=== PATIENT | male | born 1990 ===

== ENCOUNTER 2021-03-11 16:46 | Inpatient (IN) ==
[2021-03-11] MEDS ORDERED: VANCOMYCIN INJ 1,000 MG in SODIUM CHLORIDE 0.9% 250 ML IV STA (17:22)
[2021-03-11] MEDS ORDERED: ACETAMINOPHEN 325 MG TABLET PO PRN (20:53)
[2021-03-11] MEDS ORDERED: ZALEPLON 5 MG CAPSULE PO PRN (20:53)
[2021-03-11] MEDS ORDERED: ONDANSETRON 4 MG/2 ML VIAL IV PRN (20:53)
[2021-03-12] MEDS ORDERED: VANCOMYCIN INJ 2,000 MG in SODIUM CHLORIDE 0.9% 500 ML IV ONE (05:30)
[2021-03-12 06:05] LABS: Basophils % 0.5 % (0.0-0.8); Eosinophils # 0.2 10*3/uL (0.0-0.87); Eosinophils % 2.9 % (0.00-10.9); Hemoglobin 13.2 GM/DL (14.0-18.0); Immature Granulocytes % 0.9 %; Immature Granulocytes Absolute 0.07 #; Lymphocytes # 3.4 10*3/uL (1.4-4.0); Lymphocytes % 41.1 % (21.2-54.2); Mean Corpuscular HGB Conc 33.8 GM/DL (32-36); Mean Corpuscular Volume 91.3 FL (87-102); Mean Platelet Volume 8.8 FL (9.6-12.0); Monocytes % 8.2 % (1.7-12.7); Neutrophils % 46.4 % (38.7-73.9); Platelet Count 296 T/CUMM (130-400); Red Blood Count 4.27 MC/CUMM (3.8-5.5); Red Cell Distribution Width 12.8 % (9.3-17.3); White Blood Count 8.2 T/CUMM (4-12)
[2021-03-12 06:22] LABS: Bilirubin,Total 0.6 MG/DL (0.20-1.00); Calcium 8.7 MG/DL (8.5-10.1); Osmolality,Calculated 280.4 MOS/KG (273-304); Potassium 4.1 MMOL/L (3.5-5.1)
[2021-03-12] MEDS ORDERED: PANTOPRAZOLE 40 MG TABLET PO SCH (09:00)
[2021-03-12] MEDS ORDERED: LIDOCAINE 1%/EPI INJ 20 ML VIAL ONE (09:32)
[2021-03-12] MEDS ORDERED: BUPIVACAINE MPF 0.25% 30 ML VIAL ONE (09:32)
[2021-03-12] MEDS ORDERED: propofoL 200 MG/20 ML VIAL IV ONE (09:38)
[2021-03-12] MEDS ORDERED: LIDOCAINE 2% 5 ML VIAL ONE (09:38)
[2021-03-12] MEDS ORDERED: fentaNYL 100 MCG/2 ML VIAL ONE (10:04)
[2021-03-12] MEDS ORDERED: MIDAZOLAM 2 MG/2 ML VIAL ONE (10:04)
[2021-03-12] MEDS ORDERED: ONDANSETRON 4 MG/2 ML VIAL IV PRN (10:46)
[2021-03-12] MEDS: HYDROmorphone 2 MG/1 ML VIAL IV PRN ×2 (10:50→11:07)
[2021-03-12] MEDS ORDERED: GLUCAGON 1 MG VIAL IM PRN (11:26)
[2021-03-12] MEDS ORDERED: DEXTROSE 50% 25 GM/50 ML VIAL IV PRN (11:26)
[2021-03-12] MEDS: INSULIN REGULAR 100 UNIT/ML SUBCUT SCH ×2 (13:21→16:52)
[2021-03-12] MEDS ORDERED: ENOXAPARIN 40 MG/0.4 ML SYRINGE SUBCUT SCH (16:00)
[2021-03-12 17:56] VITALS: BP 136/70
[2021-03-12] MEDS ORDERED: VANCOMYCIN INJ 2,000 MG in SODIUM CHLORIDE 0.9% 500 ML IV SCH (18:00)
== END 2021-03-12 18:28 | disposition home health service (06) | DRG 580 ==
LOC: N.ED 16:46 → N.EDINP 20:53 → SUATTDRO 20:53 → N.3E 23:41
PROVIDERS: ADMIT Internal Medicine; ATTEND Internal Medicine